=== PATIENT | male | born 1945 | race Caucasian/White ===

== ENCOUNTER 2017-10-18 09:23 | Day surgery (SDC) | payer OTHER, BC ==
[2017-10-12 12:41] VITALS: BMI 29.2
[2017-10-18] MEDS ORDERED: LIDOCAINE 1%/EPI 1:100000 (20 ML MULTI DOSE VIAL) ONE ×2 (11:28→13:15)
[2017-10-18] MEDS ORDERED: BACITRACIN 15 GM TUBE TOPICAL OINTMENT ONE (11:54)
[2017-10-18] MEDS ORDERED: PROPOFOL 20 ML ONE ×2 (12:39)
[2017-10-18] MEDS ORDERED: LIDOCAINE HCL/PF 2% SDV 5ML VIAL ONE (12:39)
[2017-10-18] MEDS ORDERED: ONDANSETRON 4 MG/2 ML VIAL ONE ×2 (12:39→16:25)
[2017-10-18] MEDS ORDERED: SUCCINYLCHOLINE CHLORIDE 200 MG/10 ML VIAL ONE (12:39)
[2017-10-18] MEDS ORDERED: LIDOCAINE 1%/EPI 1:100000 (50 ML MULTI DOSE VIAL) INF ONE ×2 (13:55)
[2017-10-18] MEDS ORDERED: NITROGLYCERIN 2% OINTMENT - 1GM PACKET TD ONE ×3 (14:27→14:58)
[2017-10-18] MEDS ORDERED: BACITRACIN 15 GM TUBE TOPICAL OINTMENT TP ONE ×2 (14:42→14:59)
[2017-10-18] MEDS ORDERED: ONDANSETRON 4 MG/2 ML VIAL IVPB PRN (15:30)
[2017-10-18] MEDS ORDERED: oxyCODONE HCL 5 MG TABLET PO PRN ×2 (15:30)
[2017-10-18] MEDS ORDERED: LACTATED RINGERS SOLUTION 1,000 ML IV SCH ×2 (15:30→15:45)
[2017-10-18] MEDS ORDERED: PROMETHAZINE HCL 25 MG/1 ML VIAL IVPUSH PRN (15:33)
[2017-10-18] MEDS ORDERED: ONDANSETRON 4 MG/2 ML VIAL IVPUSH PRN (15:33)
--- NOTE | 2017-10-18 15:37 | OP ---
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
[2017-10-18] MEDS ORDERED: ONDANSETRON 4 MG/2 ML VIAL IVPUSH ONE (16:26)
[2017-10-18] MEDS: CEFAZOLIN 1 GM/D5W 1 GRAM/50 ML BAG IVPB SCH (21:28)
[2017-10-18] MEDS ORDERED: TAMSULOSIN HCL 0.4 MG CAP.ER.24H (FP) PO SCH (22:00)
--- NOTE | 2017-10-18 22:17 | OP ---
DATE OF OPERATION: 10/18/2017 PROCEDURES: 1. Excision of ulcer from basal cell carcinoma on nose, preparation for flap reconstruction. 2. Paramedian forehead flap reconstruction of nasal defect. ATTENDING SURGEON: Willian Heredia MD DIRECTOR WRITING: None. ANESTHESIA: General endotracheal anesthesia. The patient is marked in the holding area awake and aware of the procedure, risks, and all incisions and resulting scars. Understands and agrees to proceed. DESCRIPTION OF PROCEDURE: Brought to the operating room and placed in supine position. Sequential compression stockings are applied. He is prepped and draped in standard surgical fashion. A gram of Ancef was given preoperatively. A time-out is called. The patient, procedure, site, side are verified. The handheld Doppler is used to determine the pattern of the supratrochlear vessels on each side. It is determined that the right supratrochlear vessel is the larger vessel, and the flap is patterned axially over this right supratrochlear artery. It is drawn with a 3-cm width ending at the right anterior hairline. The surrounding tissues are injected with a total of 18 mL of 1% lidocaine with 1:100,000 epinephrine. After waiting adequate time for hemostatic effect, an incision was made at the distal extent of the flap, and the flap is elevated from distal to proximal. The distal 2 cm of the flap are elevated in a subcutaneous plane taking care to preserve subdermal vascular. The middle 1/3 of the flap is then elevated in a subgaleal and submuscular plane and a level 2 cm superior to the bony orbital rim. The flaps are transitioned into a subperiosteal plane. The flap is then turned onto the nose showing no signs of tension nor any signs of ischemia or congestion. The forehead is then closed first by undermining in a subgaleal plane medially and laterally. There is adequate forehead laxity to allow for primary closure of the defect. The closure is performed with a series of interrupted buried 4-0 Vicryl suture within the galea and frontalis muscle. Once the muscle is fully approximated, the skin is able to be approximated with a running 5-0 nylon suture. The scalpel component of the wound is closed with a series of interrupted skin yareli. Adequate berth is given for the base of the pedicle. With the flap being able to be translocated for this length of time, it is able to be determined that the flap shows still no signs of compromise, and the attention is directed toward the nose. The entirety of the existing ulcer is excised including the entire tip subunit, the left lateral nasal wall subunit, and the dorsal subunit. The flap is of adequate size to cover all 3 of these. It is trimmed to conform to the defect. The surrounding skin edges are undermined on the nose, and an inset is performed with a series of interrupted 5-0 nylon suture after hemostasis and irrigation are performed. The undersurface of the flap is dressed with Surgicel, bacitracin, Xeroform. In the remainder of the flap 4 x 4 gauze, Hypafix tape are used. The flap is pink and viable. Prophylactic nitroglycerin paste is placed on the tip of the flap. The patient was awoken from anesthesia and transferred to Recovery without complication. WILLIAN HEREDIA M.D. [id number]
[2017-10-19] MEDS: CEFAZOLIN 1 GM/D5W 1 GRAM/50 ML BAG IVPB SCH ×2 (03:50→09:45)
[2017-10-19 06:59] VITALS: BP 115/57; PULSE 63; TEMP 98.9
[2017-10-19] MEDS: INSULIN SLIDING SCALE (NOVOLOG) 1 VIAL SQ SCH ×3 (07:55→08:01)
--- NOTE | 2017-10-19 08:20 | PN ---
Progress Note (short form) - Note Progress Note: all tissues viable, minimal bleeding, dressings changed VSSAF OK for discharge, follow up instructions given
[2017-10-19] MEDS ORDERED: ATORVASTATIN CA 80 MG TABLET (FP) PO SCH (10:00)
[2017-10-19] MEDS ORDERED: ATORVASTATIN CA 40 MG TABLET (FP) PO SCH (10:00)
[2017-10-19] MEDS ORDERED: PATIENT'S OWN MEDICATION (NON-FORMULARY) (L.Acidoph,Paracasei, B.Lactis [Probiotic] 1 EACH PO SCH (10:00)
== END 2017-10-19 10:45 | disposition home or self-care (01) ==
LOC: FASU 09:23 → FM/S 17:43 → FASU 10-19 10:45
PROVIDERS: ATTEND Plastic Surgery
PROC: 0JX10ZB Transfer Face Subcutaneous Tissue and Fascia with Skin and Subcutaneous Tissue, Open Approach (ICD-10-PCS; principal; 2017-10-18 13:34)
DX: C44.311 Basal cell carcinoma of skin of nose (principal)
CPT/HCPCS: 82962; 94760

== ENCOUNTER 2017-11-18 10:48 | Day surgery (SDC) | payer OTHER, BC ==
[2017-11-10 12:39] VITALS: BMI 28.7
[2017-11-18] MEDS ORDERED: oxyCODONE HCL 5 MG TABLET PO PRN ×4 (11:59→15:23)
[2017-11-18] MEDS ORDERED: ONDANSETRON 4 MG/2 ML VIAL IVPUSH PRN (11:59)
[2017-11-18] MEDS ORDERED: LACTATED RINGERS SOLUTION 1,000 ML IV SCH ×2 (12:00→15:30)
[2017-11-18] MEDS ORDERED: LIDOCAINE HCL/EPINEPHRINE/PF 20 ML VIAL ONE (13:16)
[2017-11-18] MEDS ORDERED: MIDAZOLAM HCL 2 MG/2 ML SINGLE DOSE VIAL ONE (13:24)
[2017-11-18] MEDS ORDERED: LIDOCAINE HCL/PF 2% SDV 5ML VIAL ONE (13:25)
[2017-11-18] MEDS ORDERED: PROPOFOL 20 ML ONE (13:25)
[2017-11-18] MEDS ORDERED: SUCCINYLCHOLINE CHLORIDE 200 MG/10 ML VIAL ONE (13:29)
[2017-11-18] MEDS ORDERED: LIDO 2%/EPI 1:200000 PRESRVFRE (20 ML SDVIAL) INF ONE ×2 (13:34)
[2017-11-18] MEDS ORDERED: ceFAZolin SODIUM 1 GM VIAL ONE (13:38)
[2017-11-18] MEDS ORDERED: DEXAMETHASONE SOD PHOSPHATE 4 MG/1 ML VIAL ONE (13:45)
[2017-11-18] MEDS ORDERED: BACITRACIN 15 GM TUBE TOPICAL OINTMENT ONE (14:45)
[2017-11-18] MEDS ORDERED: ONDANSETRON 4 MG/2 ML VIAL IVPB PRN (15:23)
[2017-11-18 16:07] VITALS: TEMP 98.3
[2017-11-18 17:11] VITALS: BP 135/79; PULSE 71
--- NOTE | 2017-11-18 21:56 | OP ---
DATE OF OPERATION: 11/18/2017 TITLE OF PROCEDURE: Division and inset of forehead flap for second-stage reconstruction of nose. PREOPERATIVE DIAGNOSIS: Basal cell carcinoma of nose status post first stage of forehead flap reconstruction. ATTENDING SURGEON: Willian Heredia MD ANESTHESIA: General endotracheal anesthesia. The patient was seen in the holding area, marked at the appropriate site, counseled on all risks, benefits, and alternatives to the procedure, understands, agreed to proceed, brought to the operating room, placed in supine position. After having been given general anesthesia, draped and prepped in standard surgical fashion, given a gram of Ancef. Timeout was called. Patient, procedure, site, and side are verified. At this point, the patient is given 5 mL of 2% lidocaine with 1:100,000 epinephrine to each of the donor site and the nose. The flap is then divided at its mid portion. The distal portion of the flap is defatted. The remainder of the nasal dorsum is excised. The flap is inset after hemostasis is achieved to the nasal dorsum with 5-0 nylon suture and trimming of the flap to confirm. The proximal portion of the flap is likewise defatted. The edges are undermined. It is trimmed to confirm, and it is inset into the forehead defect with a series of interrupted, buried, deep dermal 5-0 Vicryl suture, followed by a series of interrupted 5-0 nylon suture. Size 1/4-inch Shaila drains are used in both sites for bleeding. A lightly compressive dressing is applied. All tissues are pink and viable at the end of the procedure. Awoken from anesthesia, transferred to Recovery without complication. WILLIAN HEREDIA M.D. [id number]
== END 2017-11-18 17:00 | disposition home or self-care (01) ==
LOC: FASU 10:48
PROVIDERS: ATTEND Plastic Surgery
PROC: 0H81XZZ Division of Face Skin, External Approach (ICD-10-PCS; principal; 2017-11-18 13:45)
DX: C44.311 Basal cell carcinoma of skin of nose (principal)
CPT/HCPCS: 82962; 94760